=== PATIENT | male | born 1970 | race Caucasian/White ===

== ENCOUNTER 2016-06-20 20:28 | Emergency (ER) | payer OTHER ==
[~2016-06-20 20:28] MED LIST: KCL10C PO; LASI20TA PO; METH500T3 PO; OXYM10 PO
== END 2016-06-20 21:54 | disposition left against medical advice (07) ==
LOC: PHED 20:28
DX: H57.8 Other specified disorders of eye and adnexa (principal)
CPT/HCPCS: 99281

== ENCOUNTER 2016-10-10 13:32 | Emergency (ER) | payer BC, OTHER ==
[~2016-10-10] VITALS: Ht 193 cm; Wt 86.6 kg
[2016-10-10 13:35] VITALS: BP 126/93; PULSE 71; RESP 16; TEMP 98.9; O2SAT 98
[2016-10-10] MEDS ORDERED: GABA600T PO (13:46)
[2016-10-10] MEDS ORDERED: IBUP800T23 PO (13:46)
[2016-10-10] MEDS ORDERED: METH750T PO (13:46)
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
== END 2016-10-10 14:11 | disposition left against medical advice (07) ==
LOC: PHEFT 13:32
DX: R05 Cough (principal); R53.81 Other malaise; H92.01 Otalgia, right ear; R07.0 Pain in throat; F17.200 Nicotine dependence, unspecified, uncomplicated
CPT/HCPCS: 99281

== ENCOUNTER 2016-10-12 18:58 | Inpatient (IN) | payer OTHER ==
[~2016-10-12] VITALS: Ht 193 cm; Wt 152.3 kg
[~2016-10-12 18:58] MED LIST changes: +GABA600T PO; +IBUP800T23 PO; -KCL10C PO; -LASI20TA PO; -METH500T3 PO; +METH750T PO; -OXYM10 PO
[2016-10-12 19:23] VITALS: BP 137/81; PULSE 73; RESP 18; TEMP 98; O2SAT 97
[2016-10-12 19:29] VITALS: BP 127/68; PULSE 76; RESP 18; TEMP 98; O2SAT 97
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
[2016-10-12] MEDS ORDERED: IOHEXOL 350 MG/ML 10 ML VIAL (for RAD DIAG) IV ONE ×2 (19:49→22:17)
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
[2016-10-12 20:30] VITALS: O2SAT 100
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
[2016-10-12] MEDS ORDERED: NICOTINE 14 MG/24 HR PATCH T-DERMAL ONE (20:45)
[2016-10-12] MEDS ORDERED: PROPOFOL 200 MG/20 ML AMP IV ONE (20:45)
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
[2016-10-12 20:53] LABS: AUTOMATED NEUTROPHIL # 14.7 TH/MM3 (1.8-7.7); BASOPHIL % 0.2 % (0.0-2.0); EOSINOPHIL # 0.1 TH/MM3 (0-0.4); EOSINOPHIL % 0.4 % (0.0-4.0); HEMATOCRIT 41.5 % (39.0-51.0); HEMO FLAGS DIFF FINAL; LYMPH % 8.7 % (9.0-44.0); LYMPHOCYTE # 1.5 TH/MM3 (1.0-4.8); MEAN CELL VOLUME 90.8 FL (80.0-100.0); MEAN CORPUSCULAR HEMOGLOBIN 30.4 PG (27.0-34.0); MEAN CORPUSCULAR HGB CONC 33.5 % (32.0-36.0); MONO % 6.1 % (0.0-8.0); NEUT % 84.6 % (16.0-70.0); PLATELET COUNT 268 TH/MM3 (150-450); RED BLOOD COUNT 4.57 MIL/MM3 (4.50-5.90); RED CELL DISTRIBUTION WIDTH 13.6 % (11.6-17.2); WHITE BLOOD COUNT 17.3 TH/MM3 (4.0-11.0)
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
[2016-10-12] MEDS ORDERED: SODIUM CHLORIDE 0.9% FLUSH 10 ML FLUSH IV FLUSH PRN (21:00)
[2016-10-12] MEDS: BACITRACIN TOP OINT 15 GM TUBE TOP SCH (21:00)
[2016-10-12] MEDS ORDERED: CHLORHEXIDINE GLUCONATE 2 % 1 PACK (2 CLOTHS) TOP PRN (21:00)
[2016-10-12] MEDS ORDERED: ENALAPRILAT 1.25 MG/ML VIAL IV PRN (21:00)
[2016-10-12] MEDS ORDERED: LACTATED RINGER'S 1000 ML INJ 1,000 ML IV ONE (21:00)
[2016-10-12] MEDS ORDERED: ONDANSETRON HCL 4 MG/2 ML VIAL IV PRN (21:00)
[2016-10-12] MEDS ORDERED: MAGNESIUM HYDROXIDE SUSP 30 ML CUP PO PRN (21:00)
[2016-10-12] MEDS: DOCUSATE SODIUM 100 MG CAP PO SCH (21:00)
[2016-10-12] MEDS ORDERED: MISCELLANEOUS NURSING INFORMATION XX SCH (21:00)
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
[2016-10-12 21:10] LABS: APTT (PATIENT) 25.5 SEC (24.3-30.1); PROTHROMBIN TIME - PATIENT 11.4 SEC (9.8-11.6)
[2016-10-12 21:20] LABS: BICARBONATE 28.4 MEQ/L (21.0-32.0); POTASSIUM 3.5 MEQ/L (3.5-5.1)
--- NOTE | 2016-10-12 21:20 | RADRPT ---
EXAM DATE/TIME: 10/12/2016 21:10 [facility] COMPARISON: ELBOW LEFT LIMITED (AP & LAT), October 12, 2016, 20:08. INDICATIONS : Post reduction. MEDICAL HISTORY : None. SURGICAL HISTORY : None. ENCOUNTER: Initial ACUITY: 1 day PAIN SCORE: 0/10 LOCATION: Left elbow FINDINGS: Two view examination of the left elbow demonstrates patient's elbow in a splint. Soft tissue swelling . Small bony fragment. Radial head appears to be well aligned. There is anatomic alignment.CONCLUSION : Postreduction views appear anatomic. Small bony fragment likely an olecranon fracture Ranjan Fang MD on October 12, 2016 at 21:18 Board Certified Radiologist. This report was verified electronically.
[2016-10-12 21:28] VITALS: BP 145/92; PULSE 73; RESP 18; O2SAT 100
[2016-10-12] MEDS ORDERED: MIDAZOLAM HCL 2 MG/2 ML VIAL IV PUSH ONE (22:00)
[2016-10-12] MEDS ORDERED: LORazepam 2 MG/ML VIAL IV PUSH ONE (22:00)
[2016-10-12 22:22] LABS: AMPHETAMINE, URINE NEG (NEG); BARBITURATES, URINE NEG (NEG); COCAINE, URINE NEG (NEG)
[2016-10-12 22:30] VITALS: BP 145/104; PULSE 84; RESP 28; TEMP 98.4; O2SAT 98
[2016-10-12] MEDS ORDERED: LORazepam 2 MG TAB PO PRN (22:45)
[2016-10-12] MEDS ORDERED: LORazepam 2 MG/ML VIAL IV PUSH PRN ×2 (22:45)
[2016-10-12] MEDS ORDERED: FLUMAZENIL 0.5 MG/5 ML VIAL IV PUSH PRN (22:45)
[2016-10-12] MEDS ORDERED: LORazepam 1 MG TAB PO PRN (22:45)
[2016-10-12] MEDS: DEXMEDETOMIDINE INJ 200 MCG in SODIUM CHLORIDE 0.9% INJ 50 ML IV SCH ×2 (22:50→22:59)
[2016-10-12] MEDS: LORazepam 2 MG/ML VIAL IV PUSH PRN (22:50)
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
[2016-10-12] MEDS: ENOXAPARIN SODIUM 30 MG/0.3 ML SYRINGE SQ SCH (22:59)
[2016-10-12] MEDS ORDERED: ZIPRASIDONE MESYLATE 20 MG VIAL IM ONE (23:15)
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
[2016-10-13] VITALS (14 sets, daily range): BP systolic 114–142; BP diastolic 63–90; PULSE 54–72; RESP 19–23; TEMP 97.3–98.7; O2SAT 94–100
[2016-10-13] MEDS: DEXMEDETOMIDINE INJ 200 MCG in SODIUM CHLORIDE 0.9% INJ 50 ML IV SCH ×5 (01:30→21:50)
[2016-10-13] MEDS: LORazepam 2 MG/ML VIAL IV PUSH PRN (01:56)
[2016-10-13] MEDS: CHLORHEXIDINE GLUCONATE 2 % 1 PACK (2 CLOTHS) TOP SCH (03:40)
[2016-10-13 04:06] LABS: BASOPHIL # 0.1 TH/MM3 (0-0.2); BASOPHIL % 0.7 % (0.0-2.0); EOSINOPHIL # 0.1 TH/MM3 (0-0.4); EOSINOPHIL % 0.7 % (0.0-4.0); HEMATOCRIT 41.7 % (39.0-51.0); HEMO FLAGS DIFF FINAL; LYMPHOCYTE # 1.1 TH/MM3 (1.0-4.8); MEAN CELL VOLUME 92.1 FL (80.0-100.0); MEAN CORPUSCULAR HEMOGLOBIN 31.2 PG (27.0-34.0); MEAN CORPUSCULAR HGB CONC 33.9 % (32.0-36.0); MONO % 5.7 % (0.0-8.0); NEUT % 82.9 % (16.0-70.0); PLATELET COUNT 208 TH/MM3 (150-450); RED BLOOD COUNT 4.53 MIL/MM3 (4.50-5.90); RED CELL DISTRIBUTION WIDTH 13.7 % (11.6-17.2); WHITE BLOOD COUNT 10.9 TH/MM3 (4.0-11.0)
[2016-10-13 04:24] LABS: BICARBONATE 27.4 MEQ/L (21.0-32.0); POTASSIUM 3.5 MEQ/L (3.5-5.1)
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
[2016-10-13] MEDS ORDERED: BISACODYL 10 MG SUPP RECTAL PRN (07:30)
[2016-10-13] MEDS: LACTATED RINGER'S 1000 ML INJ 1,000 ML IV SCH ×2 (07:30→16:18)
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
[2016-10-13] MEDS: GABAPENTIN 300 MG CAP PO SCH ×4 (08:41→18:21)
[2016-10-13] MEDS: BACITRACIN TOP OINT 15 GM TUBE TOP SCH ×2 (08:41→20:04)
[2016-10-13] MEDS: LACTULOSE SYRUP 20 GM/30 ML CUP PO SCH (08:41)
[2016-10-13] MEDS: DOCUSATE SODIUM 100 MG CAP PO SCH ×2 (08:41→20:03)
[2016-10-13] MEDS: METHOCARBAMOL 500 MG TAB PO SCH ×4 (08:41→18:21)
[2016-10-13] MEDS ORDERED: PANTOPRAZOLE SODIUM 40 MG VIAL IV PUSH SCH (09:00)
[2016-10-13] MEDS: ENOXAPARIN SODIUM 30 MG/0.3 ML SYRINGE SQ SCH ×2 (09:21→20:21)
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
[2016-10-13] MEDS: REMOVE OLD PATCH T-DERMAL SCH (10:16)
[2016-10-13] MEDS: NICOTINE 14 MG/24 HR PATCH T-DERMAL SCH (10:54)
--- NOTE | 2016-10-13 14:39 | HHI.CCPN ---
Subjective 24 Hour Review/Hospital Course 10/13/16 Patient became agitated enough overnight to require Precedex for sedation He is currently on a low dose of Precedex, somnolent but arousable His fractures are all to be managed nonoperatively Objective Vital Signs Date Time Temp Pulse Resp B/P Pulse Ox O2 Delivery O2 Flow Rate FiO2 10/13/16 14:00 65 10/13/16 12:00 97.3 19 125/74 100 10/13/16 08:30 Nasal Cannula 2.00 Result Diagram: 10/13/16 0343 10/13/16 0343 Imaging Last 24 hours Impressions Elbow X-Ray 10/12/162057 Signed Impressions: Service Date/Time: Wednesday, October 12, 2016 21:10 - CONCLUSION: Postreduction views appear anatomic. Small bony fragment likely an olecranon fracture Ranjan Fang MD Thoracic Spine CT 10/12/162027 Signed Impressions: Service Date/Time: Wednesday, October 12, 2016 19:45 - CONCLUSION: 1. Minimal fracture of superior endplate T9. 2. Nondisplaced fracture at T8 spinous process. Ranjan Fang MD Head CT 10/12/161923 Signed Impressions: Service Date/Time: Wednesday, October 12, 2016 19:39 - CONCLUSION: No acute disease. Ranjan Fang MD Chest X-Ray 10/12/161923 Signed Impressions: Service Date/Time: Wednesday, October 12, 2016 20:04 - CONCLUSION: No acute disease. Ranjan Fang MD Chest CT 10/12/161923 Signed Impressions: Service Date/Time: Wednesday, October 12, 2016 19:45 - CONCLUSION: 1. Bibasilar densities posteriorly likely atelectasis. 2. Minimal superior endplate compression fracture at what appears to be T9. 3. Possible fractures involving spinous processes. 4. Noncontrasted CT thoracic spine may be warranted. Ranjan Fang MD Abdomen/Pelvis CT 10/12/161923 Signed Impressions: Service Date/Time: Wednesday, October 12, 2016 19:45 - CONCLUSION: 1. No abdominal visceral injury. 2. Right renal cyst. 3. Subcentimeter hepatic low-density likely benign. Ranjan F. 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, agitated when off Hemodynamic/Cardiac Regular rate and rhythm, stable Pulmonary/Respiratory Clear to auscultation bilaterally, diminished bilaterally Abdomen/GI Nutrition Soft, nontender nondistended Renal/I&O Stable Hematologic Stable Assessment and Plan Plan Will continue patient on Precedex and wean as tolerated due to his postconcussive symptoms The patient is arousable enough to refuse pain medication due to his recent stay at rehabilitation Continue Neurontin and Robaxin His C2 and T9 fractures aer nonoperative, he will require aspirin for his vertebral artery injury His left elbow fracture is to be managed nonoperatively per orthopedic surgery Discussed his prognosis and condition with patient's family at the bedside His mental status does not improve significantly by tomorrow, we will repeat his head CT prior to starting aspirin Govind Sequeira MD Oct 13, 2016 14:39
[2016-10-13] MEDS: IBUPROFEN 800 MG TAB PO SCH ×2 (15:05→22:08)
[2016-10-13] MEDS ORDERED: BUPRENORPHINE/NALOXONE 8 MG/2 MG SUBLINGUAL TAB SL ONE (15:15)
[2016-10-13] MEDS: ACETAMINOPHEN 325 MG TAB PO PRN (18:20)
[2016-10-14] VITALS (12 sets, daily range): BP systolic 114–147; BP diastolic 46–93; PULSE 46–94; RESP 14–21; TEMP 96.8–99.7; O2SAT 96–100
[2016-10-14] MEDS: CHLORHEXIDINE GLUCONATE 2 % 1 PACK (2 CLOTHS) TOP SCH (03:47)
[2016-10-14] MEDS: DEXMEDETOMIDINE INJ 200 MCG in SODIUM CHLORIDE 0.9% INJ 50 ML IV SCH (03:47)
[2016-10-14 04:33] LABS: AUTOMATED NEUTROPHIL # 5.7 TH/MM3 (1.8-7.7); BASOPHIL % 0.3 % (0.0-2.0); EOSINOPHIL # 0.3 TH/MM3 (0-0.4); EOSINOPHIL % 2.9 % (0.0-4.0); HEMATOCRIT 36.4 % (39.0-51.0); HEMO FLAGS DIFF FINAL; LYMPH % 21.8 % (9.0-44.0); LYMPHOCYTE # 1.9 TH/MM3 (1.0-4.8); MEAN CELL VOLUME 90.6 FL (80.0-100.0); MEAN CORPUSCULAR HEMOGLOBIN 30.1 PG (27.0-34.0); MEAN CORPUSCULAR HGB CONC 33.2 % (32.0-36.0); MONO % 8.6 % (0.0-8.0); NEUT % 66.4 % (16.0-70.0); PLATELET COUNT 210 TH/MM3 (150-450); RED BLOOD COUNT 4.02 MIL/MM3 (4.50-5.90); RED CELL DISTRIBUTION WIDTH 13.6 % (11.6-17.2); WHITE BLOOD COUNT 8.6 TH/MM3 (4.0-11.0)
--- NOTE | 2016-10-14 05:58 | RADRPT ---
EXAM DATE/TIME: 10/14/2016 04:47 [place] COMPARISON: No previous studies available for comparison. INDICATIONS : Shortness of breath. MEDICAL HISTORY : None. SURGICAL HISTORY : None. ENCOUNTER: Subsequent ACUITY: 3 days PAIN SCORE: Non-responsive. LOCATION: Bilateral chest FINDINGS: A single view of the chest demonstrates the lungs to be symmetrically aerated without evidence of mas s, infiltrate or effusion. The cardiomediastinal contours are unremarkable. Osseous structures are intact. CONCLUSION: Normal examination. Qasim Noel MD on October 14, 2016 at 5:56 Board Certified Radiologist. This report was verified electronically.
[2016-10-14] MEDS: BACITRACIN TOP OINT 15 GM TUBE TOP SCH ×2 (09:00→21:35)
[2016-10-14] MEDS ORDERED: BUPRENORPHINE/NALOXONE 8 MG/2 MG SUBLINGUAL TAB SL SCH (09:00)
[2016-10-14] MEDS: REMOVE OLD PATCH T-DERMAL SCH (09:00)
[2016-10-14] MEDS: IBUPROFEN 800 MG TAB PO SCH ×2 (09:34→16:08)
[2016-10-14] MEDS: DOCUSATE SODIUM 100 MG CAP PO SCH ×2 (09:35→21:34)
[2016-10-14] MEDS: LACTULOSE SYRUP 20 GM/30 ML CUP PO SCH (09:36)
[2016-10-14] MEDS: NICOTINE 14 MG/24 HR PATCH T-DERMAL SCH (09:36)
[2016-10-14] MEDS: ENOXAPARIN SODIUM 30 MG/0.3 ML SYRINGE SQ SCH ×2 (09:36→21:32)
[2016-10-14] MEDS: FAMOTIDINE 20 MG TAB PO SCH ×2 (09:36→21:34)
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
[2016-10-14] MEDS: ASPIRIN 325 MG TAB PO SCH (10:43)
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
[2016-10-14] MEDS: GABAPENTIN 300 MG CAP PO SCH ×3 (12:25→22:11)
[2016-10-14] MEDS: METHOCARBAMOL 500 MG TAB PO SCH ×3 (12:25→21:33)
[2016-10-14 16:01] LABS: ALT (GPT) 19 U/L (12-78); ANION GAP 9 MEQ/L (5-15); AST (GOT) 19 U/L (15-37); BICARBONATE 26.9 MEQ/L (21.0-32.0); BLOOD UREA NITROGEN 8 MG/DL (7-18); CHLORIDE 108 MEQ/L (98-107); GLOMERULAR FILTRATION RATE 161 ML/MIN (>89); POTASSIUM 3.2 MEQ/L (3.5-5.1); SODIUM (NA) 144 MEQ/L (136-145)
[2016-10-14 16:03] LABS: ALKALINE PHOSPHATASE 84 U/L (45-117); TOTAL BILIRUBIN ADULT 0.3 MG/DL (0.2-1.0)
[2016-10-14] MEDS ORDERED: ACETAMINOPHEN 325 MG TAB PO PRN (16:15)
[2016-10-15] VITALS (7 sets, daily range): BP systolic 121–151; BP diastolic 76–93; PULSE 74–93; RESP 17–20; TEMP 96.8–97.7; O2SAT 98–100
[2016-10-15] MEDS: IBUPROFEN 800 MG TAB PO SCH ×3 (00:27→16:48)
[2016-10-15] MEDS: ACETAMINOPHEN 325 MG TAB PO PRN (02:35)
[2016-10-15] MEDS: LORazepam 2 MG/ML VIAL IV PUSH PRN ×2 (02:36→05:28)
[2016-10-15] MEDS: METHOCARBAMOL 500 MG TAB PO SCH ×4 (03:40→23:58)
[2016-10-15] MEDS: CHLORHEXIDINE GLUCONATE 2 % 1 PACK (2 CLOTHS) TOP SCH (04:00)
[2016-10-15] MEDS: ASPIRIN 325 MG TAB PO SCH (08:41)
[2016-10-15] MEDS: DOCUSATE SODIUM 50 MG/SENNA 8.6 MG TAB PO SCH ×2 (08:41→21:51)
[2016-10-15] MEDS: NICOTINE 14 MG/24 HR PATCH T-DERMAL SCH (08:42)
[2016-10-15] MEDS: FAMOTIDINE 20 MG TAB PO SCH ×2 (08:42→21:50)
[2016-10-15] MEDS: BACITRACIN TOP OINT 15 GM TUBE TOP SCH ×2 (08:42→21:52)
[2016-10-15] MEDS: REMOVE OLD PATCH T-DERMAL SCH (08:42)
[2016-10-15] MEDS: LACTULOSE SYRUP 20 GM/30 ML CUP PO SCH (08:42)
[2016-10-15] MEDS: ENOXAPARIN SODIUM 30 MG/0.3 ML SYRINGE SQ SCH ×2 (08:43→21:51)
[2016-10-15] MEDS ORDERED: METHOCARBAMOL 500 MG TAB PO SCH ×2 (09:00)
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
[2016-10-15] MEDS: GABAPENTIN 300 MG CAP PO SCH ×2 (11:57→16:48)
[2016-10-15] MEDS: DIAZEPAM 5 MG TAB PO SCH ×2 (14:16→21:51)
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
[2016-10-16] VITALS: BP 137/85; PULSE 62; RESP 16; TEMP 98.2; O2SAT 99
[2016-10-16] MEDS: IBUPROFEN 800 MG TAB PO SCH ×4 (00:01→23:39)
[2016-10-16 04:00] VITALS: BP 161/40; PULSE 63; RESP 18; TEMP 97.2; O2SAT 98
[2016-10-16] MEDS: METHOCARBAMOL 500 MG TAB PO SCH ×4 (04:57→23:39)
[2016-10-16 08:07] VITALS: BP 134/84; PULSE 63; RESP 20; TEMP 96.7; O2SAT 96
[2016-10-16] MEDS: BACITRACIN TOP OINT 15 GM TUBE TOP SCH ×2 (09:00→20:54)
[2016-10-16] MEDS: REMOVE OLD PATCH T-DERMAL SCH (09:00)
[2016-10-16] MEDS: DOCUSATE SODIUM 50 MG/SENNA 8.6 MG TAB PO SCH ×2 (09:05→20:53)
[2016-10-16] MEDS: ENOXAPARIN SODIUM 30 MG/0.3 ML SYRINGE SQ SCH ×2 (09:05→20:55)
[2016-10-16] MEDS: ASPIRIN 325 MG TAB PO SCH (09:05)
[2016-10-16] MEDS: NICOTINE 14 MG/24 HR PATCH T-DERMAL SCH (09:05)
[2016-10-16] MEDS: FAMOTIDINE 20 MG TAB PO SCH ×2 (09:06→20:53)
[2016-10-16] MEDS: DIAZEPAM 5 MG TAB PO SCH ×2 (09:06→20:53)
[2016-10-16] MEDS: LACTULOSE SYRUP 20 GM/30 ML CUP PO SCH (09:06)
[2016-10-16] MEDS: GABAPENTIN 300 MG CAP PO SCH ×3 (09:06→17:21)
[2016-10-16] MEDS ORDERED: ASPI325T PO (09:31)
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
[2016-10-16 11:58] VITALS: BP 136/91; PULSE 84; RESP 20; TEMP 97.8; O2SAT 94
[2016-10-16 15:53] VITALS: BP 124/90; PULSE 78; RESP 20; TEMP 97.5; O2SAT 97
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
[2016-10-16 20:00] VITALS: BP 139/86; PULSE 74; RESP 18; TEMP 97.2; O2SAT 92
[2016-10-17] VITALS: BP 136/82; PULSE 67; RESP 18; TEMP 97; O2SAT 93
[2016-10-17 04:00] VITALS: BP 170/95; PULSE 60; RESP 18; TEMP 96.7; O2SAT 97
[2016-10-17] MEDS: METHOCARBAMOL 500 MG TAB PO SCH ×2 (04:53→09:46)
[2016-10-17 08:03] VITALS: BP 119/76; PULSE 63; RESP 20; TEMP 96.9; O2SAT 98
[2016-10-17] MEDS: LACTULOSE SYRUP 20 GM/30 ML CUP PO SCH (09:00)
[2016-10-17] MEDS: REMOVE OLD PATCH T-DERMAL SCH (09:00)
[2016-10-17] MEDS: NICOTINE 14 MG/24 HR PATCH T-DERMAL SCH (09:33)
[2016-10-17] MEDS: DOCUSATE SODIUM 50 MG/SENNA 8.6 MG TAB PO SCH (09:35)
[2016-10-17] MEDS: GABAPENTIN 300 MG CAP PO SCH ×2 (09:35→12:40)
[2016-10-17] MEDS: IBUPROFEN 800 MG TAB PO SCH (09:36)
[2016-10-17] MEDS: FAMOTIDINE 20 MG TAB PO SCH (09:36)
[2016-10-17] MEDS: ASPIRIN 325 MG TAB PO SCH (09:37)
[2016-10-17] MEDS: DIAZEPAM 5 MG TAB PO SCH (09:37)
[2016-10-17] MEDS: BACITRACIN TOP OINT 15 GM TUBE TOP SCH (09:38)
[2016-10-17] MEDS: ENOXAPARIN SODIUM 30 MG/0.3 ML SYRINGE SQ SCH (09:46)
[2016-10-17 12:08] VITALS: BP 133/87; PULSE 88; RESP 20; TEMP 96.8; O2SAT 97
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
[2016-10-17] MEDS ORDERED: OXYC-395 PO (13:46)
== END 2016-10-17 13:53 | disposition home or self-care (01) | DRG 563 ==
LOC: NEPE 18:58 → NEDA 21:03 → N03B 22:25 → N05A 10-14 16:27
PROVIDERS: ADMIT Surgery; ATTEND Surgery
PROC: 0PSLXZZ Reposition Left Ulna, External Approach (ICD-10-PCS; principal; 2016-10-12)
PROC: 0PSJXZZ Reposition Left Radius, External Approach (ICD-10-PCS; 2016-10-12)
DX: S52.022A Displaced fracture of olecranon process without intraarticular extension of left ulna, initial encounter for closed fracture (principal); S12.190A Other displaced fracture of second cervical vertebra, initial encounter for closed fracture; S22.068A Other fracture of T7-T8 thoracic vertebra, initial encounter for closed fracture; S22.078A Other fracture of T9-T10 vertebra, initial encounter for closed fracture; S06.0X1A Concussion with loss of consciousness of 30 minutes or less, initial encounter; G62.9 Polyneuropathy, unspecified; S00.81XA Abrasion of other part of head, initial encounter; F17.210 Nicotine dependence, cigarettes, uncomplicated; V29.40XA Motorcycle driver injured in collision with unspecified motor vehicles in traffic accident, initial encounter; Y92.410 Unspecified street and highway as the place of occurrence of the external cause
CPT/HCPCS: 70450; 70498; 71010; 71260; 72125; 72128; 72141; 73070; 73090; 73218; 74177; 80048; 80053; 80307; 85025; 85610; 85730; 87641; 94150; C9113; J1650; J2060; J2250; J3486; J7120; L0150; L0172; L0200; L0484; Q9967

== ENCOUNTER 2016-11-01 17:49 | Emergency (ER) | payer OTHER ==
[~2016-11-01] VITALS: Ht 188 cm; Wt 94.3 kg
[~2016-11-01 17:49] MED LIST changes: +ASPI325T PO; +OXYC-395 PO
[2016-11-01 17:50] VITALS: BP 133/93; PULSE 85; RESP 18; TEMP 98.3; O2SAT 96
[2016-11-01] MEDS ORDERED: FURO1TAB62 PO (19:23)
[2016-11-01] MEDS ORDERED: POTA1TAB77 PO (19:23)
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
[2016-11-01] MEDS ORDERED: FUROSEMIDE 20 MG TAB PO ONE (19:30)
[2016-11-01] MEDS ORDERED: POTASSIUM CHLORIDE 20 MEQ CONTROLLED RELEASE TAB PO ONE (19:30)
== END 2016-11-01 20:03 | disposition home or self-care (01) ==
LOC: PHED 17:49
DX: R60.0 Localized edema (principal); I25.10 Atherosclerotic heart disease of native coronary artery without angina pectoris; F17.210 Nicotine dependence, cigarettes, uncomplicated
CPT/HCPCS: 99283

== ENCOUNTER 2016-11-13 17:05 | Emergency (ER) | payer OTHER ==
[~2016-11-13] VITALS: Ht 193 cm; Wt 91.8 kg
[~2016-11-13 17:05] MED LIST changes: +FURO1TAB62 PO; +POTA1TAB77 PO
[2016-11-13 17:07] VITALS: BP 162/104; PULSE 88; RESP 16; TEMP 98; O2SAT 97
[2016-11-13] MEDS ORDERED: CLON0.5T PO (17:24)
[2016-11-13] MEDS ORDERED: DEXAMETHASONE SOD PHOS 4 MG/ML VIAL IM ONE (18:15)
[2016-11-13] MEDS ORDERED: KETOROLAC TROMETHAMINE 60 MG/2 ML (IM) VIAL IM ONE (18:15)
[2016-11-13] MEDS ORDERED: ORPHENADRINE INJ 60 MG/2 ML AMP IM ONE (18:15)
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
[2016-11-13] MEDS ORDERED: PRED20 PO (18:19)
== END 2016-11-13 18:33 | disposition home or self-care (01) ==
LOC: PHEFT 17:05
DX: S49.91XA Unspecified injury of right shoulder and upper arm, initial encounter (principal); V29.9XXA Motorcycle rider (driver) (passenger) injured in unspecified traffic accident, initial encounter
CPT/HCPCS: 96372; 99284; J1100; J1885; J2360